=== PATIENT | female | born 1955 | race Caucasian/White ===

== ENCOUNTER → 2017-08-04 | Outpatient (CLI) | payer BC ==
[~2017-08-04] MED LIST: BENADRYL25 M2 PO; CALCIUM 600/VIT1 CAP PO; GLUCOSAMINE & C1 CA1 PO; HAIRSKINNAILS PO; MULTI VITAMINS1 TAB PO; NATURAL FLAX1000 MG PO; NATURAL MAGNES200 MG PO; NIACIN500 M4 PO; NORCO 325 MG-7.1 TAB PO; PHARMASSURE CHE30 MG PO
== END ==
LOC: MC.RAD 08:59
DX: Z12.31 Encounter for screening mammogram for malignant neoplasm of breast (principal)

== ENCOUNTER → 2021-01-14 | Outpatient (CLI) | payer BC ==
[~2021-01-14] MED LIST changes: +ACIDOPHILIS PO; +ASPIRIN 81M81 MG/TA2 PO; +CIPRO 500MG TA500 MG PO; +CLARITIN 1010 MG/TAB PO; +FIBERCON PO; +FLAGYL500 MG PO; +GLUCOSAMINE & C1 CA2 PO; +MASON NATURAL1200 MG PO; +NORCO 325 MG-51 TAB PO; +ONE-A-DAY ESSE1 EACH PO; +OSCAL 500 TAB500 MG PO; +PHARMASSURE MA500 MG PO; +PRINIVIL40 MG PO; +VITAMIN FLUSH-F1 CAP PO; +ZOFRAN ODT4 MG PO
== END ==
LOC: MC.RAD 13:57
DX: N60.02 Solitary cyst of left breast (principal)

== ENCOUNTER → 2021-01-21 | Outpatient (CLI) | payer BC | LOC: MC.RAD 08:00 | DX: N63.10 Unspecified lump in the right breast, unspecified quadrant (principal); Z98.82 Breast implant status ==

== ENCOUNTER → 2021-02-17 | Outpatient (CLI) | payer BC | LOC: MC.RAD 14:00 | DX: C50.911 Malignant neoplasm of unspecified site of right female breast (principal) | CPT/HCPCS: A9520; A9541; C1769 ==

== ENCOUNTER 2021-02-18 06:51 | Day surgery (SDC) | payer BC ==
[~2021-02-18] VITALS: Ht 167.6 cm; Wt 74.8 kg
[~2021-02-18 06:51] MED LIST changes: -ACIDOPHILIS PO; -ASPIRIN 81M81 MG/TA2 PO; -CIPRO 500MG TA500 MG PO; -CLARITIN 1010 MG/TAB PO; -FIBERCON PO; -FLAGYL500 MG PO; -GLUCOSAMINE & C1 CA2 PO; -MASON NATURAL1200 MG PO; -NORCO 325 MG-51 TAB PO; -ONE-A-DAY ESSE1 EACH PO; -OSCAL 500 TAB500 MG PO; -PHARMASSURE MA500 MG PO; -PRINIVIL40 MG PO; -VITAMIN FLUSH-F1 CAP PO; -ZOFRAN ODT4 MG PO
[2021-02-18] MEDS ORDERED: ONE-A-DAY ESSE1 EACH PO (08:07)
[2021-02-18] MEDS ORDERED: CLARITIN 1010 MG/TAB PO (08:08)
[2021-02-18] MEDS ORDERED: MASON NATURAL1200 MG PO (08:08)
[2021-02-18] MEDS ORDERED: FIBERCON PO (08:08)
[2021-02-18] MEDS ORDERED: GLUCOSAMINE & C1 CA2 PO (08:09)
[2021-02-18] MEDS ORDERED: VITAMIN FLUSH-F1 CAP PO (08:09)
[2021-02-18] MEDS ORDERED: OSCAL 500 TAB500 MG PO (08:10)
[2021-02-18] MEDS ORDERED: BENADRYL25 M2 PO (08:10)
[2021-02-18] MEDS ORDERED: PHARMASSURE MA500 MG PO (08:10)
[2021-02-18] MEDS ORDERED: PRINIVIL40 MG PO (08:11)
[2021-02-18] MEDS ORDERED: ACIDOPHILIS PO (08:11)
[2021-02-18] MEDS ORDERED: ASPIRIN 81M81 MG/TA2 PO (08:12)
[2021-02-18] MEDS ORDERED: CIPRO 500MG TA500 MG PO (08:13)
[2021-02-18] MEDS ORDERED: FLAGYL500 MG PO (08:13)
[2021-02-18] MEDS ORDERED: ZOFRAN ODT4 MG PO (08:14)
[2021-02-18 08:18] VITALS: BP 149/80; PULSE 58; TEMP 97.7
[2021-02-18] MEDS ORDERED: NORCO 325 MG-51 TAB PO (13:18)
[2021-02-18 13:40] VITALS: BP 128/60; PULSE 54; TEMP 98.5
--- NOTE | 2021-02-18 13:40 | NUR ---
Patient brought back into bay [facility], patient 's brought back into room. Report received from GEOVANI Kenyon. Patient awake and alert requesting toast and diet pepsi.
[2021-02-18 13:55] VITALS: BP 134/58; PULSE 54
--- NOTE | 2021-02-18 14:00 | NUR ---
Patient tolerated food and drink well with no complaint of nausea. Stating having some discomfort in right breast. PRN pain medication given. Vital signs stable.
[2021-02-18 14:10] VITALS: BP 138/55; PULSE 56
--- NOTE | 2021-02-18 14:15 | NUR ---
Went through discharge instructions with patient and . Patient verbalized understanding to education, questions answered. IV removed with no complications. Patient got up with assistance of to the restroom and voided successfully. Patient got dressed with assistance of . And was escorted to patient entrance via wheelchair. Patient got into personal vehicle independently and left in the care of her .
[2021-02-18 14:26] VITALS: BP 137/67; PULSE 60
== END 2021-02-18 14:30 | disposition home or self-care (01) ==
LOC: SDCO 06:51
DX: C50.511 Malignant neoplasm of lower-outer quadrant of right female breast (principal); I10 Essential (primary) hypertension; K57.92 Diverticulitis of intestine, part unspecified, without perforation or abscess without bleeding; E78.00 Pure hypercholesterolemia, unspecified; Z90.710 Acquired absence of both cervix and uterus; Z79.899 Other long term (current) drug therapy; Z90.89 Acquired absence of other organs; Z80.3 Family history of malignant neoplasm of breast; Z83.3 Family history of diabetes mellitus
CPT/HCPCS: A4648; J0690; J1885; J2250; J2405; J2704; J2795; J3010; J7120

== ENCOUNTER 2021-11-15 02:58 | Emergency (ER) | payer BC ==
[~2021-11-15] VITALS: Ht 167.6 cm; Wt 77.3 kg
[~2021-11-15 02:58] MED LIST changes: +ACIDOPHILIS PO; +ASPIRIN 81M81 MG/TA2 PO; +CIPRO 500MG TA500 MG PO; +CLARITIN 1010 MG/TAB PO; +FIBERCON PO; +FLAGYL500 MG PO; +GLUCOSAMINE & C1 CA2 PO; +MASON NATURAL1200 MG PO; +NORCO 325 MG-51 TAB PO; +ONE-A-DAY ESSE1 EACH PO; +OSCAL 500 TAB500 MG PO; +PHARMASSURE MA500 MG PO; +PRINIVIL40 MG PO; +VITAMIN FLUSH-F1 CAP PO; +ZOFRAN ODT4 MG PO
[2021-11-15 03:17] LABS: BASO # 0.1 K/mm3 (0.0-0.2); BASO % 0.8 % (0.0-2.0); EOS # 0.2 K/mm3 (0.0-0.7); EOS % 1.9 % (0.0-4.0); GRAN # 4.1 K/mm3 (1.4-6.5); GRAN % 41.9 % (42.2-75.2); HEMATOCRIT 48.2 % (37.0-47.0); HEMOGLOBIN 16.7 g/dl (12.5-16.0); LYMPH # 4.5 K/mm3 (1.2-3.4); LYMPH % 46.4 % (20.0-51.0); MEAN CELL VOLUME 88 fl (80.0-100.0); MEAN CORPUSCULAR HEMOGLOBIN 31 pg (27-31); MEAN CORPUSCULAR HGB CONC 35 g/dl (33.0-37.0); MEAN PLATELET VOLUME 10.9 fl (7.4-10.4); MONO # 0.8 K/mm3 (0.1-0.6); MONO % 8.5 % (1.7-9.3); PLATELET COUNT 283 K/mm3 (130-400); RED BLOOD COUNT 5.45 M/mm3 (4.10-5.30); REDCELL DISTRIBUTION WIDTH-CV 12.2 % (11.5-14.5)
[2021-11-15 03:32] LABS: ALBUMIN 4.6 gm/dL (3.4-4.8); BILIRUBIN,TOTAL 0.5 mg/dL (0.2-1.2); CREATININE, serum 0.85 mg/dL (0.57-1.11); POTASSIUM 4.1 mmol/L (3.5-4.5)
[2021-11-15 03:35] LABS: COLLECTION METHOD CLEAN CATCH
[2021-11-15 03:39] LABS: URINE APPEARANCE Clear (CLEAR/HAZY); URINE COLOR Straw (YELLOW); URINE GLUCOSE Negative (NEGATIVE); URINE PROTEIN(semi-quant) 2+ (NEGATIVE)
[2021-11-15 03:40] LABS: URINE BLOOD TRACE-INTACT (NEGATIVE); URINE KETONE Negative (NEGATIVE); URINE NITRATE Negative (NEGATIVE); URINE UROBILINOGEN 0.2 E.U/dL (0.2-1.0)
[2021-11-15 03:43] LABS: SQUAMOUS EPITHELIAL None Seen /hpf (0-10); URINE BACTERIA None Seen /hpf (NONE SEEN); URINE RBC 0-2 /hpf (0-2)
[2021-11-15 03:51] LABS: TROPONIN-I 0.01 ng/mL (0.00-0.033)
[2021-11-15 05:45] VITALS: BP 132/75; PULSE 58; TEMP 97.8
== END 2021-11-15 05:46 | disposition home or self-care (01) ==
LOC: COL.ER 02:58
PROVIDERS: Emergency Medicine
DX: R00.2 Palpitations (principal)

== ENCOUNTER → 2024-01-13 | Outpatient (CLI) | payer MEDICARE, BC | LOC: MC.RAD 11:07 | DX: Z12.31 Encounter for screening mammogram for malignant neoplasm of breast (principal) ==